=== PATIENT | female | born 1945 | race Caucasian/White ===

== ENCOUNTER 2022-01-05 10:22 | Day surgery (SDC) | payer MEDICARE, OTHER, SELFPAY ==
--- NOTE | 2022-01-05 10:43 | W.ANESPRE ---
General Info Date of Service Date Performed: 01/05/22 Height: 5 ft Weight: 63.049 kg Body Mass Index (BMI): 27.1 Surgical Procedure: Operation Date: 01/05/22 12:10 Proposed Procedure Side Surgeon p Cataract Extraction with IOL Implant Left Nadeem Maki MD Meds Allergies and Home Medications Allergies Allergy/AdvReac Type Severity Reaction Status Date / Time ibuprofen Allergy Severe Anaphylaxis Unverified 01/05/22 10:53 aspirin Allergy Intermediate Swelling/Ed Verified 01/05/22 10:58 marky Penicillins Allergy Intermediate Other (See Unverified 01/05/22 10:53 Comment) Home Medication Medication Instructions Recorded Cbd 1 ml PO DIRECTED 01/02/22 cholecalciferol (vitamin D3) 125 125 mcg PO DAILY 01/02/22 mcg (5,000 unit) tablet (Vitamin D3) cod liver oil 1 cap PO DAILY 01/02/22 diclofenac sodium 1 % topical gel 2 g topical QID 01/02/22 diphenhydramine 25 1 tab PO DAILY 01/02/22 mg-acetaminophen 500 mg tablet (Acetaminophen PM) prjizqvfpdke-kzqwvvuy-trhawe 1 tab PO DAILY 01/02/22 tablet (Multivitamin 50 Plus tablet) omeprazole 20 mg capsule,delayed 20 cap PO DAILY 01/02/22 release simvastatin 40 mg tablet 40 tab PO DAILY 01/02/22 vitamin E 100 unit capsule 1 cap PO DAILY 01/02/22 Current Visit Medications: Current Medications Generic Name Dose Route Start Last Admin Trade Name Freq PRN Reason Stop Dose Admin Acetaminophen 1,000 mg 01/05/22 06:00 Acetaminophen 500 Mg Tab PO Q4H PRN PRN Miscellaneous Medication 0 ml 01/05/22 06:00 Tropicam./Phenyleph. (1/2.5%) 5 Ml Btl OS DIRECTED ASIA Tetracaine HCl 0 ml 01/05/22 06:00 Tetracaine 0.5% 4 Ml Btl OS DIRECTED ASIA PFSH Active Problems Active Problems: Problem Status Onset Code Nuclear sclerotic cataract of left eye H25.12 Cortical cataract of left eye H26.9 Medical History Medical History (Updated 01/05/22 @ 10:57 by Sharon Navarrete) Cough HLD (hyperlipidemia) Hx of cholelithiasis Hx of gastroesophageal reflux (GERD) Hypertensive disorder Surgical History Surgical History (Reviewed 01/05/22 @ 10:57 by Sharon Cha Hx of cholecystectomy Hx of hysterectomy Hx of oral surgery Tobacco Smoking/Tobacco Use Status: Never Alcohol Alcohol Intake: current Alcohol intake frequency: holidays/special occasions only Alcohol type: wine Substance Use Substance use: Never Substance use type: does not use Vital Signs and Lab Results Lab Results Blood Type / Crossmatch: No Data to Display Complete Blood Count: No Data to Display Complete Metabolic Panel: No Data to Display Liver Function Panel: No Data to Display Coagulation Panel: No Data to Display Cardiac Panel: No Data to Display Arterial Blood Gas: No Data to Display Venous Blood Gas: No Data to Display Pancreas Panel: No Data to Display Thyroid Panel: No Data to Display Infectious Disease: No Data to Display Blood Cultures: No Data to Display Toxicology Panel: No Data to Display Anesthesia Assessment and Plan Anesthesia History Personal History: No History of Anesthesia Complications Family History: No Family History of Anesthesia Complications Exercise Tolerance Exercise Tolerance: Metabolic Equivalents>4 Pertinent Negatives Pertinent Negatives: No Symptoms of GERD, No Major Cardiovascular Symptoms or Complaints, No Major Pulmonary Symptoms or Complaints and No History of CVA/TIA Cardiac & Pulmonary Exam Cardiac Exam: Normal S1/S2 Heart Sounds Pulmonary Exam: Clear Bilateral Breath Sounds Implantable Cardiac Device Does patient have a Pacemaker or an ICD?: No Airway Exam Known Difficult Airway: No Mallampati Class: 2 Mouth Opening: Normal (> 3cm) Thyromental Distance: Greater than 3 cm Neck Range of Motion: Full ROM Neck Circumference: Normal Teeth Condition: Normal Dentition ASA Classification ASA Score: ASA 2 Emergency Case?: No NPO Status NPO Status: NPO Clears >2 hours, Solids >8 hours Anesthesia Plan Resuscitation Status: Full Code Anesthesia Technique: MAC Anesthesia Airway Planned: Natural Airway Monitors Used: Standard Monitors
[2022-01-05 10:58] VITALS: BP 172/80; PULSE 71; RESP 16; TEMP 36.2; O2SAT 100
[2022-01-05 11:06] VITALS: BMI 27.1
[2022-01-05] MEDS: Tropicam./Phenyleph. (1/2.5%) 5 ML BTL OS ×3 (11:11→11:24)
[2022-01-05] MEDS: Normal Saline 250 ML 30 ML IV (11:55)
[2022-01-05] MEDS: Tetracaine 0.5% 4 ML BTL OS (12:02)
[2022-01-05] MEDS: Balanced Salt Soln.-PLUS 500 ML BAG (12:03)
[2022-01-05] MEDS: Duovisc Viscoelastic System EACH 1 EACH (12:03)
[2022-01-05] MEDS: Lidocaine 2% Jelly 6 ML SYR (12:04)
[2022-01-05] MEDS: Povidone-Iodine Ophth 30 ML BTL (12:05)
[2022-01-05 12:20] VITALS: BP 147/70; PULSE 81; RESP 16; TEMP 36.5; O2SAT 100
--- NOTE | 2022-01-05 12:21 | W.PM.DSUDISC ---
Discharge Plan Disposition Patient Disposition: HOME Condition: Good Discharge Details Attending Provider: Nadeem Maki Primary Care Provider: Josie Goel Home Meds and New Rx's Prescriptions: No Action simvastatin 40 mg tablet 40 tab PO DAILY omeprazole 20 mg capsule,delayed release(DR/EC) 20 cap PO DAILY Multivitamin 50 Plus Tablet 1 tab PO DAILY diclofenac sodium 1 % Gel 2 g TOPICAL QID Cbd 1 ml PO DIRECTED cod liver oil Capsule 1 cap PO DAILY vitamin E 100 unit Capsule 1 cap PO DAILY diphenhydramine-acetaminophen [Acetaminophen PM] 25-500 mg Tablet 1 tab PO DAILY cholecalciferol (vitamin D3) [Vitamin D3] 125 mcg (5,000 unit) Tablet 125 mcg PO DAILY Discharge Instructions Stand Alone Forms: Post-op Topical Cataract, Shannon Godoy ([facility]) Discharge Orders Discharge Orders: Discharge Order (Routine); Ordered 01/05/22 Ordered By: Nadeem aMki DS: Diagnosis Discharge Diagnosis (1) Nuclear sclerotic cataract of left eye: Status: Resolved (2) Cortical cataract of left eye: Status: Resolved
--- NOTE | 2022-01-05 12:22 | ROE_ITS ---
Date of service: 01/05/22 Time of Service: : Operative Note Operative Note DATE OF PROCEDURE: 01/05/22 PRE-OP DIAGNOSIS: Nuclear/cortical cataract, left eye POST-OP DIAGNOSIS: same PROCEDURE: Cataract extraction using phacoemulsification with intraocular lens implant, left eye SURGEON: Nadeem Maki ANESTHESIA TYPE: Local By Surgeon and MAC Refer to Anesthesia Record PATHOLOGY: none sent COMPLICATIONS: None Patient was transported to: same day Patient's condition: stable Implants: Rm and Rm / [employer] Tecnis [id number] Indications: Progressive decreased vision due to cataract, left eye Procedure Description: CATARACT SURGERY OPERATIVE REPORT PREOPERATIVE DIAGNOSIS: 1. Nuclear/cortical cataract, left eye POSTOPERATIVE DIAGNOSIS: Same OPERATION: 1. Cataract extraction using phacoemulsification with posterior chamber intraocular lens implant, left eye. IOL: IOL Galvanizer/Model: Rm & Rm / HORACIO Tecnis [id number] IOL Power: + 22.5 diopters IOL Serial Number: [id number] Optic Diameter: 6.0 mm Haptic/Overall Diameter: 13.0 mm PHACO INFO: [employer] Vision System with OZil and Active Fluidics Cumulative Dispersed Energy (CDE): 8.1 seconds SURGEON: Nadeem Maki MD, ROWAN ANESTHESIA: Monitored A [facility] (MAC), with local sub-tenon's anesthetic infiltration COMPLICATIONS: None SPECIMENS: None INDICATIONS FOR PROCEDURE: The patient is a 76-year-old lady with history of diminished visual acuity in her left eye secondary to the development of nuclear/cortical cataract. The option of cataract surgery was offered to the patient and she felt she was symptomatic and she wished to proceed PROCEDURE: The correct surgical eye was identified and marked as the left eye and the pupil was dilated in the preoperative area using mydriatics and cycloplegics. The dilated pupil size was seven-point mm. The patient was brought to the operating room where cardiopulmonary monitoring was instituted and surgical time-out was performed, confirming the correct operative eye and IOL power. Intravenous sedation Versed 1 mg IV was given. Topical anesthesia was administered and ophthalmic povidone-iodine 5% was instilled into the conjunctival fornices. Lidocaine gel was applied to the cornea and the marko-ocular area was prepped with Betadine 10% solution and draped in the usual sterile fashion for intraocular surgery, including an aperture drape. A Tegaderm transparent film dressing was cut in half and used to cover the lashes and lid margins. Care was taken to sequester the lashes and lid margins under the Tegaderm dressing. A lid speculum was placed between the lids of the operative eye and the Carlyle Lux[employer] Revalia operating microscope was maneuvered into position. Anahy scissors were then used to make a conjunctival buttonhole approximately 6mm posterior to the limbus in the inferonasal quadrant. Blunt dissection was carried out to expose bare sclera, and a blunt-tipped sub-tenon?s anesthesia cannula was introduced and passed posteriorly along the globe where non- preserved plain lidocaine was injected into posterior sub-Tenon?s space. A sideport knife was used to make a paracentesis port superiorly/superiortemporal ly. Intraocular phenylephrine/lidocaine was injected int the anterior chamber.. The anterior chamber was filled with viscoelastic. A 2.4mm keratome knife was used to construct a 2-plane near-clear corneal tunnel extending 2.0mm into clear cornea temporally. A flap was raised on the anterior capsule and capsulorhexis forceps were used to complete a continuous curvilinear capsulorhexis of 5.5 mm. Balanced salt solution was then used to perform cortical cleaving hydrodissection and nuclear hydrodelineation until the lens could be freely rotated within the capsular bag. The lens nucleus was then disassembled and removed within the capsular bag and iris plane using phacoemulsification. Residual cortical material was removed using the 45-degree angled silicone I/A tip with 0.3mm port. The posterior capsule was carefully polished to remove as much residual lens epithelial cells as safely possible. The capsular bag was then inflated and the anterior chamber deepened with viscoelastic. The lens implant described above was inserted into the capsular bag using the HORACIO [place] Injector. A Kuglen hook was used to dial the IOL into position. Residual viscoelastic was then removed first from posterior to the IOL, then from the anterior chamber using the I/A handpiece. The lens implant was noted to center nicely within the capsular bag. The incisions were stromally hydrated, and the anterior chamber was reformed using BSS. Then 0.5cc of moxifloxacin 1.0mg/ml were injected into the capsular bag and anterior chamber. The incisions were checked with a Weck spear and found to be secure. Several drops of ophthalmic povidone-iodine 5% were then applied to the eye followed by two drops of Imprimis combination prednisolone/moxifloxacin/nepafenac solution. The drapes were removed and a clear plastic protective eye shield was placed over the eye. The patient was then returned to Same Day Surgery in stable condition.
[2022-01-05 12:46] VITALS: BP 163/68; PULSE 64; RESP 16; TEMP 36.1; O2SAT 100
--- NOTE | 2022-01-05 12:49 | W.ANESPOSTOP ---
Postoperative Evaluation Date, Time and Location Date Performed: 01/05/22 Time Performed: 12:49 Patient Location: Day Surgery Unit Vital Signs Most Recent Imported Vital Signs: Most Recent Vital Signs Temp Pulse Resp BP Pulse Ox 36.1 C L 64 16 163/68 H 100 01/05/22 12:46 01/05/22 12:46 01/05/22 12:46 01/05/22 12:46 01/05/22 12:46 Pain Score Most Recent Pain Score: Most Recent Pain Score Pain Level 0 01/05/22 12:46 Assessment Mental Status: Awake (Alert & Oriented to Patient Baseline) Airway and Respiratory Function: Patent airway with normal (patient baseline) respiratory exam Cardiovascular Function: Hemodynamically Stable Hydration Status: Adequately Hydrated Nausea & Vomiting: No Nausea or Vomiting Pain: Pt. Denies Any Pain Peripheral Nerve Block: Patient did not receive a nerve block
== END 2022-01-05 12:54 | disposition home or self-care (01) ==
PROVIDERS: PCP Nurse Practitioner Family; Visit Provider Ophthalmology
PROC: (CPT 66984; principal; 2022-01-05 12:00)
DX: H25.12 Age-related nuclear cataract, left eye (principal); I10 Essential (primary) hypertension; E78.5 Hyperlipidemia, unspecified
CPT/HCPCS: 66984; V2632; J2250

== ENCOUNTER 2022-01-16 08:20 | Day surgery (SDC) | payer MEDICARE, OTHER, SELFPAY ==
[2022-01-16] MEDS: Lactated Ringers 1,000 ML 80 ML IV (08:45)
[2022-01-16 08:50] VITALS: BP 165/100; PULSE 85; RESP 18; TEMP 36.5; O2SAT 99
[2022-01-16] MEDS: Tropicam./Phenyleph. (1/2.5%) 5 ML BTL OD ×3 (08:58→09:08)
[2022-01-16 09:35] VITALS: BMI 26.6
--- NOTE | 2022-01-16 09:35 | W.ANESPRE ---
General Info Date of Service Date Performed: 01/16/22 Height: 5 ft Weight: 61.9 kg Body Mass Index (BMI): 26.6 Surgical Procedure: Operation Date: 01/16/22 09:55 Proposed Procedure Side Surgeon p Cataract Extraction with IOL Implant Right Nadeem Maki MD Actual Procedure Side Surgeon p Cataract Extraction with IOL Implant Right Nadeem Maki MD Pre-Op Diagnosis Post-Op Diagnosis CATARACT RIGHT EYE CATARACT RIGHT EYE Meds Allergies and Home Medications Allergies Allergy/AdvReac Type Severity Reaction Status Date / Time ibuprofen Allergy Severe Anaphylaxis Verified 01/16/22 08:48 /edema aspirin Allergy Intermediate Swelling/Ed Verified 01/16/22 08:44 marky Penicillins Allergy Intermediate facial Verified 01/16/22 08:48 swelling Home Medication Medication Instructions Recorded Cbd 1 ml PO DIRECTED 01/02/22 cholecalciferol (vitamin D3) 125 125 mcg PO DAILY 01/02/22 mcg (5,000 unit) tablet (Vitamin D3) cod liver oil 1 cap PO DAILY 01/02/22 diclofenac sodium 1 % topical gel 2 g topical QID 01/02/22 diphenhydramine 25 1 tab PO DAILY 01/02/22 mg-acetaminophen 500 mg tablet (Acetaminophen PM) tkuvnafezwmj-csprvssz-riilrn 1 tab PO DAILY 01/02/22 tablet (Multivitamin 50 Plus tablet) omeprazole 20 mg capsule,delayed 20 cap PO DAILY 01/02/22 release simvastatin 40 mg tablet 40 tab PO DAILY 01/02/22 vitamin E 100 unit capsule 1 cap PO DAILY 01/02/22 Current Visit Medications: Current Medications Generic Name Dose Route Start Last Admin Trade Name Freq PRN Reason Stop Dose Admin Acetaminophen 1,000 mg 01/16/22 06:00 Acetaminophen 500 Mg Tab PO 01/16/22 16:00 Q4H PRN PRN Ringer's Solution 1,000 mls @ 80 mls/hr 01/16/22 08:45 01/16/22 08:45 IV 80 mls/hr INFUSION ASIA Administration Miscellaneous Medication 0 ml 01/16/22 06:00 01/16/22 09:08 Tropicam./Phenyleph. (1/2.5%) 5 Ml Btl OD 01/16/22 16:00 1 drp DIRECTED ASIA Administration Ofloxacin 10 ml 01/16/22 08:30 Ofloxacin 0.3% Ophth. 10 Ml Btl OD QID [facility] Prednisolone Acetate 5 ml 01/16/22 08:30 Prednisolone 1% 5 Ml Btl OD TID [facility] Tetracaine HCl 0 ml 01/16/22 06:00 Tetracaine 0.5% 4 Ml Btl OD 01/16/22 16:00 DIRECTED [facility] PFS Active Problems Active Problems: Problem Status Onset Code Nuclear sclerotic cataract of left eye H25.12 Cortical cataract of left eye H26.9 Medical History Medical History Cough HLD (hyperlipidemia) Hx of cholelithiasis Hx of gastroesophageal reflux (GERD) Hypertensive disorder Surgical History Surgical History History of cataract surgery Hx of cholecystectomy Hx of hysterectomy Hx of oral surgery Tobacco Smoking/Tobacco Use Status: Never Alcohol Alcohol Intake: current Alcohol intake frequency: holidays/special occasions only Alcohol type: wine Substance Use Substance use: Never Substance use type: does not use Vital Signs and Lab Results Vital Signs Most Recent Vital Signs in EMR: Most Recent Vital Signs Temp Pulse Resp BP Pulse Ox 36.5 C 85 18 165/100 H 99 01/16/22 08:50 01/16/22 08:50 01/16/22 08:50 01/16/22 08:50 01/16/22 08:50 Lab Results Blood Type / Crossmatch: No Data to Display Complete Blood Count: No Data to Display Complete Metabolic Panel: No Data to Display Liver Function Panel: No Data to Display Coagulation Panel: No Data to Display Cardiac Panel: No Data to Display Arterial Blood Gas: No Data to Display Venous Blood Gas: No Data to Display Pancreas Panel: No Data to Display Thyroid Panel: No Data to Display Infectious Disease: No Data to Display Blood Cultures: No Data to Display Toxicology Panel: No Data to Display Anesthesia Assessment and Plan Anesthesia History Personal History: No History of Anesthesia Complications Family History: Other Exercise Tolerance Exercise Tolerance: Metabolic Equivalents>4 Pertinent Negatives Pertinent Negatives: No Major Cardiovascular Symptoms or Complaints, No Major Pulmonary Symptoms or Complaints and No History of CVA/TIA Cardiac & Pulmonary Exam Cardiac Exam: Normal S1/S2 Heart Sounds Pulmonary Exam: Clear Bilateral Breath Sounds Implantable Cardiac Device Does patient have a Pacemaker or an ICD?: No Airway Exam Known Difficult Airway: No Mallampati Class: 2 Mouth Opening: Normal (> 3cm) Thyromental Distance: Greater than 3 cm Neck Range of Motion: Full ROM Neck Circumference: Normal Teeth Condition: Normal Dentition ASA Classification ASA Score: ASA 2 Emergency Case?: No NPO Status NPO Status: NPO Clears >2 hours, Solids >8 hours Anesthesia Plan Resuscitation Status: Full Code Anesthesia Technique: MAC Anesthesia Airway Planned: Natural Airway Monitors Used: Standard Monitors
[2022-01-16] MEDS: Tetracaine 0.5% 4 ML BTL OD (10:05)
[2022-01-16] MEDS: Balanced Salt Soln.-PLUS 500 ML BAG (10:06)
[2022-01-16] MEDS: Duovisc Viscoelastic System EACH 1 EACH (10:07)
[2022-01-16] MEDS: Lidocaine 2% Jelly 6 ML SYR (10:10)
[2022-01-16] MEDS: Povidone-Iodine Ophth 30 ML BTL (10:13)
[2022-01-16 10:17] VITALS: BP 160/94; PULSE 73; RESP 17; TEMP 36.1; O2SAT 98
--- NOTE | 2022-01-16 10:19 | W.ANESPOSTOP ---
Postoperative Evaluation Date, Time and Location Date Performed: 01/16/22 Time Performed: 10:19 Patient Location: Day Surgery Unit Vital Signs Most Recent Imported Vital Signs: Most Recent Vital Signs Temp Pulse Resp BP Pulse Ox 36.5 C 85 18 165/100 H 99 01/16/22 08:50 01/16/22 08:50 01/16/22 08:50 01/16/22 08:50 01/16/22 08:50 Most Recent Manually Entered Vital Signs: Adult Blood Pressure: 160/94 Heart Rate: 73 Respirations: 10 Oxygen Saturation (%): 98 Temperature (C): 36.3 C Pain Score (0-10 Scale): 0 Pain Score Most Recent Pain Score: Most Recent Pain Score Pain Level 0 01/16/22 08:50 Assessment Mental Status: Awake (Alert & Oriented to Patient Baseline) Airway and Respiratory Function: Patent airway with normal (patient baseline) respiratory exam Cardiovascular Function: Hemodynamically Stable Hydration Status: Adequately Hydrated Nausea & Vomiting: No Nausea or Vomiting Pain: Pt. Denies Any Pain Peripheral Nerve Block: Patient did not receive a nerve block
--- NOTE | 2022-01-16 10:19 | W.PM.DSUDISC ---
Discharge Plan Disposition Patient Disposition: HOME Condition: Good Discharge Details Attending Provider: Nadeem Maki Primary Care Provider: Josie Goel Home Meds and New Rx's Prescriptions: No Action simvastatin 40 mg tablet 40 tab PO DAILY omeprazole 20 mg capsule,delayed release(DR/EC) 20 cap PO DAILY Multivitamin 50 Plus Tablet 1 tab PO DAILY diclofenac sodium 1 % Gel 2 g TOPICAL QID Cbd 1 ml PO DIRECTED cod liver oil Capsule 1 cap PO DAILY vitamin E 100 unit Capsule 1 cap PO DAILY diphenhydramine-acetaminophen [Acetaminophen PM] 25-500 mg Tablet 1 tab PO DAILY cholecalciferol (vitamin D3) [Vitamin D3] 125 mcg (5,000 unit) Tablet 125 mcg PO DAILY Discharge Instructions Stand Alone Forms: Post-op Topical Cataract, Shannon Godoy ([facility]) Discharge Orders Discharge Orders: Discharge Order (Routine); Ordered 01/16/22 Ordered By: Nadeem Maki DS: Diagnosis Discharge Diagnosis (1) Cortical cataract of right eye: Status: Resolved (2) Nuclear sclerotic cataract of right eye: Status: Resolved
[2022-01-16 10:20] VITALS: BP 160/94; PULSE 73; RESP 10; TEMPC 36.3; O2SAT 98
--- NOTE | 2022-01-16 10:20 | ROE_ITS ---
Date of service: 01/16/22 Time of Service: 09:20 Operative Note Operative Note DATE OF PROCEDURE: 01/16/22 PRE-OP DIAGNOSIS: Nuclear/cortical cataract, right eye POST-OP DIAGNOSIS: same PROCEDURE: Cataract extraction using phacoemulsification with intraocular lens implant, right eye SURGEON: Nadeem Maki ANESTHESIA TYPE: Local By Surgeon and MAC Refer to Anesthesia Record ESTIMATED BLOOD LOSS: 0 PATHOLOGY: none sent COMPLICATIONS: None Patient was transported to: same day Patient's condition: stable Implants: Rm & Rm/HORACIO Tecnis [id number] Indications: Progressive visual loss due to cataract, right eye Procedure Description: CATARACT SURGERY OPERATIVE REPORT PREOPERATIVE DIAGNOSIS: 1. Nuclear/cortical cataract, right eye POSTOPERATIVE DIAGNOSIS: Same OPERATION: 1. Cataract extraction using phacoemulsification with posterior chamber intraocular lens implant, right eye. IOL: IOL Consulting Systems Engineer/Model: Rm & Rm / HORACIO Tecnis [id number] IOL Power: + 22.5 diopters IOL Serial Number: [id number] Optic Diameter: 6.0mm Haptic/Overall Diameter: 13.0mm PHACO INFO: [employer]le [employer] Vision System with OZil and Active Fluidics Cumulative Dispersed Energy (CDE): 8.5 to seconds SURGEON: Nadeem Maki MD, ROWAN ANESTHESIA: Monitored Anesthesia Care (MAC), with local sub-tenon's anesthetic infiltration COMPLICATIONS: None SPECIMENS: None INDICATIONS FOR PROCEDURE: The patient is a 76-year-old lady with history of diminished visual acuity in her right eye secondary to the development of nuclear and posterior subcapsular cataract. She has already undergone cataract surgery in her left eye and is doing well postoperatively. She now presents for cataract surgery in her right eye. PROCEDURE: The correct surgical eye was identified and marked as the right eye and the pupil was dilated in the preoperative area using mydriatics and cycloplegics. The dilated pupil size was 7.0 mm. She received intravenous sedation in the form of Versed 2 mg. The patient was brought to the operating room where cardiopulmonary monitoring was instituted and surgical time-out was performed, confirming the correct operative eye and IOL power. Topical anesthesia was administered and ophthalmic povidone-iodine 5% was instilled into the conjunctival fornices. Lidocaine gel was applied to the cornea and the marko-ocular area was prepped with Betadine 10% solution and draped in the usual sterile fashion for intraocular surgery, including an aperture drape. A Tegaderm transparent film dressing was cut in half and used to cover the lashes and lid margins. Care was taken to sequester the lashes and lid margins under the Tegaderm dressing. A lid speculum was placed between the lids of the operative eye and the Carlyle Lux[employer] Revalia operating microscope was maneuvered into position. Anahy scissors were then used to make a conjunctival buttonhole approximately 6mm posterior to the limbus in the inferonasal quadrant. Blunt dissection was carried out to expose bare sclera, and a blunt-tipped sub-tenon?s anesthesia cannula was introduced and passed posteriorly along the globe where non- preserved plain lidocaine was injected into posterior sub-Tenon?s space. A sideport knife was used to make a paracentesis port inferotemporally. Intraocular phenylephrine/lidocaine was injected into the anterior chamber. The anterior chamber was filled with viscoelastic. A 2.4mm keratome knife was used to construct a 2-plane near-clear corneal tunnel extending 2.0mm into clear cornea superiortemporally. A flap was raised on the anterior capsule and capsulorhexis forceps were used to complete a continuous curvilinear capsulorhexis of 5.0 mm. Balanced salt solution was then used to perform cortical cleaving hydrodissection and nuclear hydrodelineation until the lens could be freely rotated within the capsular bag. The lens nucleus was then disassembled and removed within the capsular bag and iris plane using phacoemulsification. Residual cortical material was removed using the I/A handpiece. The posterior capsule was carefully polished to remove as much residual lens epithelial cells as safely possible. The capsular bag was then inflated and the anterior chamber deepened with viscoelastic. The lens implant described above was inserted into the capsular bag using the HORACIO [place] Injector. A Kuglen hook was used to dial the IOL into position. Residual viscoelastic was then removed first from posterior to the IOL, then from the anterior chamber using the I/A handpiece. The lens implant was noted to center nicely within the capsular bag. The incisions were stromally hydrated, and the anterior chamber was reformed using BSS. Then 0.5cc of moxifloxacin 1.0mg/ml were injected into the capsular bag and anterior chamber. The incisions were checked with a Weck spear and found to be secure. Several drops of ophthalmic povidone-iodine 5% were then applied to the eye followed by two drops of Imprimis combination prednisolone/moxifloxacin/nepafenac solution. The drapes were removed and a clear plastic protective eye shield was placed over the eye. The patient was then returned to Same Day Surgery in stable condition.
[2022-01-16 10:50] VITALS: BP 171/84; PULSE 59; RESP 17; TEMP 36.9; O2SAT 99
== END 2022-01-16 10:50 | disposition home or self-care (01) ==
PROVIDERS: PCP Nurse Practitioner Family; Visit Provider Ophthalmology
PROC: (CPT 66984; principal; 2022-01-16 09:45)
DX: H25.11 Age-related nuclear cataract, right eye (principal); I10 Essential (primary) hypertension; E78.5 Hyperlipidemia, unspecified
CPT/HCPCS: 66984; V2632; J2250